=== PATIENT | female | born 2000 | race Two or more races ===

== ENCOUNTER 2023-02-08 23:35 | Emergency (ER) | payer MEDICAID, OTHER ==
[~2023-02-08] VITALS: Ht 152.4 cm; Wt 50.0 kg
[2023-02-09] MEDS ORDERED: SODIUM CHLORIDE 0.9% 1,000 ML IV ONE (00:15)
[2023-02-09] MEDS ORDERED: ONDANSETRON HCL 4 MG/2 ML VIAL IV ONE (00:15)
[2023-02-09 00:27] LABS: Basophils # (auto) 0.1 10 ^3/uL (0-0.2); Basophils % (auto) 0.3 % (0.0-2.0); Eosinophils # (auto) 0.1 10 ^3/uL (0-0.8); Eosinophils % (auto) 0.4 % (0.0-7.0); Hematocrit 44.7 % (36.0-46.0); Hemoglobin 14.3 g/dL (12.2-16.2); Lymphocytes # (auto) 5.1 10 ^3/uL (0.4-5.4); Lymphocytes % (auto) 25.2 % (10.0-50.0); Mean Corpuscular Hemoglobin 28.5 pg (28.0-32.0); Mean Corpuscular Volume 89.3 fL (80.0-100.0); Monocytes # (auto) 0.9 10 ^3/uL (0-1.3); Monocytes % (auto) 4.3 % (0.0-12.0); Neutrophils # (auto) 14.1 10 ^3/uL (1.6-8.6); Neutrophils % (auto) 69.8 % (37.0-80.0); Nucleated Red Blood Cells % 0.1 %; Red Cell Distribution Width 17.1 % (11.8-14.3); White Blood Cell 20.2 10^3/uL (4.4-10.8)
[2023-02-09 00:42] LABS: Albumin 3.6 g/dL (3.4-5.0); BUN/Creatinine Ratio 17.9 (10.0-20.0); Calcium 8.2 mg/dL (8.5-10.1); Potassium 3.4 mmol/L (3.5-5.1)
[2023-02-09 00:44] LABS: Bilirubin, Total 0.3 mg/dL (0.2-1.0); Total Protein 7.6 g/dL (6.4-8.2)
[2023-02-09] MEDS ORDERED: HYDROmorphone HCL 2 MG/ML VL/or syr IV ONE (00:45)
[2023-02-09] MEDS ORDERED: MIDAZOLAM DRIP 50 mg/50mL 50 ML IV SCH ×2 (01:30→01:45)
[2023-02-09] MEDS ORDERED: MIDAZOLAM HCL 5 MG/ML-1ML VIAL IV ONE (01:30)
[2023-02-09] MEDS ORDERED: ETOMIDATE (2MG/ML) 20ML VIAL IV ONE (01:30)
[2023-02-09] MEDS ORDERED: ROCURONIUM 10MG/ML 10ML VIAL IV ONE ×2 (01:30→02:45)
[2023-02-09] MEDS ORDERED: PROPOFOL 100 ML IV SCH (01:30)
[2023-02-09 03:07] VITALS: BP 131/80
== END 2023-02-09 03:41 | disposition short-term general hospital (02) ==
LOC: ER 23:35
DX: R07.81 Pleurodynia (principal); M25.532 Pain in left wrist; R51.9 Headache, unspecified
CPT/HCPCS: 36415; 36600; 70450; 71045; 71250; 72125; 73080; 73090; 73130; 74176; 80053; 80320; 82805; 84484; 85025; 96361; 96374; 99285; J2250; J2405; J2704; J7030; 94002

== ENCOUNTER 2023-02-23 17:08 | Emergency (ER) | payer MEDICAID ==
[~2023-02-23] VITALS: Ht 154.9 cm; Wt 56.9 kg
[2023-02-23 18:49] VITALS: BP 119/56
[2023-02-23] MEDS ORDERED: CEPH-510 PO (19:05)
== END 2023-02-23 19:11 | disposition home or self-care (01) ==
LOC: ER 17:08
DX: Z48.02 Encounter for removal of sutures (principal)

== ENCOUNTER 2023-03-02 13:48 | Emergency (ER) | payer MEDICAID ==
[~2023-03-02] VITALS: Ht 154.9 cm; Wt 57.3 kg
[~2023-03-02 13:48] MED LIST: CEPH-510 PO
[2023-03-02 14:37] VITALS: BP 108/71
[2023-03-02] MEDS ORDERED: NAPR-746 PO (15:17)
== END 2023-03-02 15:24 | disposition home or self-care (01) ==
LOC: ER 13:48
DX: S62.512A Displaced fracture of proximal phalanx of left thumb, initial encounter for closed fracture (principal); V89.2XXA Person injured in unspecified motor-vehicle accident, traffic, initial encounter; Y93.89 Activity, other specified; Y92.89 Other specified places as the place of occurrence of the external cause; Y99.8 Other external cause status
CPT/HCPCS: 29125

== ENCOUNTER 2023-08-17 02:36 | Emergency (ER) | payer MEDICAID ==
[~2023-08-17] VITALS: Ht 154.9 cm; Wt 61.6 kg
[~2023-08-17 02:36] MED LIST changes: +NAPR-746 PO
[2023-08-17] MEDS ORDERED: cefTRIAXone SOD 1,000 MG VL IM ONE (03:30)
[2023-08-17] MEDS ORDERED: IBUPROFEN 600 MG TAB PO ONE (03:30)
[2023-08-17] MEDS ORDERED: DexAMETHasone SOD PHOS 10MG/1ML VIAL INJ IM ONE (03:30)
[2023-08-17] MEDS ORDERED: LIDOCAINE VISCOUS 2% 15ML UD MT ONE (03:30)
[2023-08-17] MEDS ORDERED: IBUP1TAB5 PO (03:36)
[2023-08-17] MEDS ORDERED: PRED20TA2 PO (03:36)
[2023-08-17] MEDS ORDERED: LIDO2SOL18 MT (03:36)
[2023-08-17] MEDS ORDERED: AMOX500C2 PO (03:36)
[2023-08-17 05:38] VITALS: BP 108/90; PULSE 97; RESP 20; TEMP 98; O2SAT 96
== END 2023-08-17 05:36 | disposition home or self-care (01) ==
LOC: ER 02:36
DX: J03.90 Acute tonsillitis, unspecified (principal); H92.03 Otalgia, bilateral; Z79.2 Long term (current) use of antibiotics; Z79.899 Other long term (current) drug therapy
CPT/HCPCS: 96372; 99284; J0696; J1100

== ENCOUNTER 2024-05-28 11:23 | Emergency (ER) | payer MEDICAID ==
[~2024-05-28] VITALS: Ht 154.9 cm; Wt 62.3 kg
[~2024-05-28 11:23] MED LIST changes: +AMOX500C2 PO; +IBUP1TAB5 PO; +LIDO2SOL18 MT; +PRED20TA2 PO
[2024-05-28 12:17] LABS: Urine Bacteria None Seen /hpf (None Seen)
[2024-05-28 12:31] VITALS: BP 117/72; PULSE 76; RESP 16; TEMP 98.2; O2SAT 98
[2024-05-28 12:36] LABS: Urine Blood 3+ /uL (Negative); Urine Clarity Turbid (Clear); Urine Color Orange (Yellow); Urine Mucus FEW (None Seen); Urine Protein, UAD 2+ (Negative); Urine Specific Gravity 1.027 (1.001-1.035); Urine Urobilinogen Normal (Negative); Urine WBC 32 /hpf (0 - 5)
[2024-05-28 13:00] LABS: Basophils # (auto) 0 10 ^3/uL (0-0.2); Basophils % (auto) 0.4 % (0.0-2.0); Eosinophils # (auto) 0.3 10 ^3/uL (0-0.8); Eosinophils % (auto) 4.5 % (0.0-7.0); Hematocrit 43.4 % (36.0-46.0); Hemoglobin 14.6 g/dL (12.2-16.2); Lymphocytes # (auto) 2.4 10 ^3/uL (0.4-5.4); Lymphocytes % (auto) 34.8 % (10.0-50.0); Mean Corpuscular Hemoglobin 29.6 pg (28.0-32.0); Mean Corpuscular Hgb Conc. 33.6 g/dL (32.0-36.0); Mean Corpuscular Volume 88.1 fL (80.0-100.0); Monocytes # (auto) 0.4 10 ^3/uL (0-1.3); Monocytes % (auto) 5.6 % (0.0-12.0); Neutrophils # (auto) 3.8 10 ^3/uL (1.6-8.6); Neutrophils % (auto) 54.7 % (37.0-80.0); Platelet Count (auto) 318 10^3/uL (140-450); Red Blood Cells 4.92 10^6/uL (4.0-5.20); Red Cell Distribution Width 14.7 % (11.8-14.3)
[2024-05-28] MEDS ORDERED: NITR-87 PO (13:27)
== END 2024-05-28 13:24 | disposition home or self-care (01) ==
LOC: ER 11:23
DX: N39.0 Urinary tract infection, site not specified (principal); R10.2 Pelvic and perineal pain; Z32.02 Encounter for pregnancy test, result negative
CPT/HCPCS: 36415; 81001; 84702; 85025